=== PATIENT | male | born 1960 | race Caucasian/White ===

== ENCOUNTER 2024-07-01 06:28 | Observation (INO) ==
--- NOTE | 2024-06-02 16:03 | PAT Medication Instructions ---
Medication Instructions Date of Service June 02, 2024 Home Medications albuterol sulfate 90 mcg/actuation breath activated powder inhaler (ProAir RespiClick) 1 inh inhalation QID fluticasone 250 mcg-salmeterol 50 mcg/dose blistr powdr for inhalation (Advair Diskus) 1 inh inhalation BID tamsulosin 0.4 mg capsule 0.4 mg PO QAM cholecalciferol (vitamin D3) 50 mcg (2,000 unit) capsule (Vitamin D3) 50 mcg PO QAM multivitamin 1 cap PO QAM DO NOT take the morning of surgery cholecalciferol (vitamin D3) 50 mcg (2,000 unit) capsule (Vitamin D3) 50 mcg PO QAM multivitamin 1 cap PO QAM Take morning of surgery With a small sip of water, OTHERWISE NOTHING TO EAT OR DRINK AFTER MIDNIGHT: albuterol sulfate 90 mcg/actuation breath activated powder inhaler (ProAir RespiClick) 1 inh inhalation QID fluticasone 250 mcg-salmeterol 50 mcg/dose blistr powdr for inhalation (Advair Diskus) 1 inh inhalation BID tamsulosin 0.4 mg capsule 0.4 mg PO QAM Take evening before surgery albuterol sulfate 90 mcg/actuation breath activated powder inhaler (ProAir RespiClick) 1 inh inhalation QID fluticasone 250 mcg-salmeterol 50 mcg/dose blistr powdr for inhalation (Advair Diskus) 1 inh inhalation BID Other Notes If you have any questions please call us at [phone] or [phone] or [phone] or [phone]
--- NOTE | 2024-06-05 08:09 | Anesthesiology Consultation ---
Date of Service June 05, 2024 Assessment & Plan (1) Encounter for pre-operative examination: Plan Outpatient joint assessment: Patient is currently scheduled for inpatient pathway. If re-evaluated and patient/surgeon requests outpatient pathway, patient is acceptable candidate for outpatient joint program from anesthesia standpoint pending surgeon's office assessment of pt motivation/support/completion of same day joint program preop requirements. Chart Review Chart Review: Acceptable Risk for Surgery and Patient seen in Pre Admission Testing Teaching & Discussion Pre-Anesthesia Teaching/Discussion Notes: Instructed NPO after midnight before surgery, except medications with 15 cc of water. Medication instructions provided according to the PAT guidelines. History Surgery Operation Date: 07/01/24 07:00 Proposed Procedures p Right Total Knee Arthroplasty - Law Christian MD Height/Weight Height: 5 ft 9 in Weight: 101.7 kg Allergies Allergy/AdvReac Type Severity Reaction Status Date / Time No Known Allergies Allergy Verified 06/02/24 13:33 Medications Home Medications Medication Instructions Recorded Confirmed Last Taken albuterol sulfate 90 mcg/actuation 1 inh inhalation QID 11/29/23 06/02/24 Unknown breath activated powder inhaler (ProAir RespiClick) fluticasone 250 mcg-salmeterol 50 1 inh inhalation BID 11/29/23 06/02/24 Unknown mcg/dose blistr powdr for inhalation (Advair Diskus) tamsulosin 0.4 mg capsule 0.4 mg PO QAM 11/29/23 06/02/24 Unknown cholecalciferol (vitamin D3) 50 50 mcg PO QAM 06/02/24 06/02/24 Unknown mcg (2,000 unit) capsule (Vitamin D3) multivitamin 1 cap PO QAM 06/02/24 06/02/24 Unknown Past Medical History Medical History Arthritis Asthma exercise induced; controlled, stable per pt; last albuterol inhaler use estimated as several months ago by patient DJD (degenerative joint disease) GERD (gastroesophageal reflux disease) controlled, stable with diet per pt History of COVID-2020 - resolved Prediabetes Patient denies h/o stroke, seizures, heart attack, heart failure, HTN, blood clots/DVTs or blood transfusions. Exercise / Class Metabolic Activity II 4-5 Yardwork/Stairs/Walk up hill (denies chest discomfort or shortness of breath with one flight of stairs) Past Family History Family History Other Cancer Past Surgical History Surgical History H/O hand surgery right middle finger fused Hx of colonoscopy 2021 Past Anesthesia History No Hx of Anesthesia Complications and No Family Hx of Anesthesia Complications History of PONV No Hx of PONV and No Hx of Motion Sickness Social History Smoking Status: Never smoker Do You Dip or Chew Tobacco: No Hx Alcohol Use: No Hx Substance Use: No substance use type: does not use Review of Systems Snoring, denies witnessed apneas. Patient denies chest pain, shortness of breath, dyspnea on exertion, fever, chills, cough, wheezing, or palpitations. Physical Exam Vital Signs Vitals BP 118/77 P 86 TEMP 98.5 SP02 94% on RA RESP 18 Physical Patient resting comfortably in chair in no acute distress, alert and oriented, responding appropriately throughout visit Full cervical extension range of motion without pain TMD 3.5 finger breadths Mallampati Score 3 Dentition: several crowns; denies chipped or loose teeth, caps, implants or bridges Lungs: normal respiratory effort. Good air movement, clear throughout to auscultation, no adventitious breath sounds Cardiac: regular rate and rhythm, no murmurs noted Carotid arteries: negative bruit bilat Lab Results Anesthesia Preop Results Results Anesthesia Widget: PT 10.8 Seconds (9.0-12.0) 06/05/24 PTT 32 Seconds (21-31) H 06/05/24 INR 1.0 (0.9-1.1) 06/05/24 Blood Type A Negative 06/05/24 Antibody Screen NEGATIVE 06/05/24 Testing Laboratory Results 05/13/24 WBC: 8.9 H/H: PLATELETS: 307,000 SODIUM: 136 POTASSIUM: 4.4 CHLORIDE: 105 CO2: 26 BUN: 16 CREATININE: 1 GLUCOSE: 92 A1c: 5.7% Electrocardiogram Date: 06/05/24 NSR, rate 78 bpm Incomplete RBBB Chest X-Ray Date: 06/05/24 No acute chest disease.
--- NOTE | 2024-06-23 19:30 | History & Physical Report ---
Date of Service June 23, 2024 Assessment & Plan (1) Right knee DJD: 64-year-old male with advanced right knee DJD. He is failed conservative measures. He like to have his knee fixed. Plan: Darby taken to the operating room do a right total knee replacement. There is cements this procedure explained in depth and he understands. Informed consent was obtained. Will plan on DVT prophylaxis including thigh-high teds, SCDs, aspirin twice a day. He is planned to be discharged to home using [facility] health program. Will check his blood glucoses in the hospital and manage with sliding scale coverage as needed. (2) GERD (gastroesophageal reflux disease): (3) Prediabetes: (4) Asthma: History of Present Illness Chief Complaint: . Persistent right knee pain and discomfort. Primary Care Provider: Connie Mariano PA-C . The patient is a 64-year-old gentleman an avid golfer who presents for surgical treatment of right knee. He is got about a 6-year history of increasing right knee pain discomfort describes gotten worse over time. He has been through extensive conservative treatment most specifically injections which become less successful over time. Pain has become more disabling. He has good and bad days but having more bad days. He is right have his knee fixed. Allergies Allergy/AdvReac Type Severity Reaction Status Date / Time No Known Allergies Allergy Verified 06/02/24 13:33 Home Medications Medication Instructions Recorded Confirmed Type albuterol sulfate 90 mcg/actuation 1 inh inhalation QID 11/29/23 06/02/24 History breath activated powder inhaler (ProAir RespiClick) fluticasone 250 mcg-salmeterol 50 1 inh inhalation BID 11/29/23 06/02/24 History mcg/dose blistr powdr for inhalation (Advair Diskus) tamsulosin 0.4 mg capsule 0.4 mg PO QAM 11/29/23 06/02/24 History cholecalciferol (vitamin D3) 50 50 mcg PO QAM 06/02/24 06/02/24 History mcg (2,000 unit) capsule (Vitamin D3) multivitamin 1 cap PO QAM 06/02/24 06/02/24 History Past Med/Surg History Problem List Encounter for pre-operative examination Right knee DJD Medical History GERD (gastroesophageal reflux disease) controlled, stable with diet per pt Prediabetes Asthma exercise induced; controlled, stable per pt; last albuterol inhaler use estimated as several months ago by patient DJD (degenerative joint disease) Arthritis History of COVID-19 2020 - resolved Surgical History Hx of colonoscopy 2021 H/O hand surgery right middle finger fused Family History Other Cancer Social History Smoking Status: Never smoker Second Hand Exposure: No; Do You Dip or Chew Tobacco: No; Hx Alcohol Use: No Hx Substance Use: No Preferred Language: Maltese Communication Ability: Effective General Engineer Required: No Beliefs That Will Affect Care: None marital status: Current Living Situation: Spouse current occupational status: retired Feels Safe at Home: Yes Assistive Devices: None Review of Systems All systems reviewed & are unremarkable except as noted in HPI & below. Physical Exam . Physical examination was a healthy pleasant middle-age male. Looks in good health. Examination of the right knee reveal patient walks with a bit of a limp. He is got varus alignment to his knee. A little bit of varus thrust with weightbearing. Small knee effusion. Range of motion 5-1 25. No instability. No particular pain with hip motion. Constitutional WD/WN, vitals as above Neck trachea midline, no thyromegaly Respiratory normal respiratory effort, lungs clear to auscultation Cardiovascular RRR, no murmur, no edema Gastrointestinal (Abdomen) normal bowel sounds, soft, nontender, no hepatosplenomegaly Results & Data Results & Data Laboratory Results . Diagnostic Findings . X-rays of right knee reviewed. Shows advanced right knee medial compartment DJD. Got complete loss of the medial joint space. He is got tricompartment disease. Is got similar but less severe disease in his left knee. PG Care Time/CCT Total # of Minutes Spent Total Time Spent with Patient: Total time spent is greater than 50% in coordination of care (as documented) at patient's floor/unit and/or counseling patient: Coding Level of Care Code None Diagnoses Right knee DJD M17.11 GERD (gastroesophageal reflux disease) K21.9 Prediabetes R73.03 Asthma J45.909
[2024-07-01] MEDS ORDERED: BUPIVACAINE 0.5 % 5 MG/1 ML PF 10ML VIAL ONE (06:33)
[2024-07-01] MEDS ORDERED: BUPIVACAINE 0.25% PF 30 ML VIAL ONE (06:34)
--- NOTE | 2024-07-01 06:41 | History & Physical Bridge Note ---
Date of Service July 01, 2024 History & Physical Bridge Note I have examined the patient, reviewed the History & Physical and in the interval since the performance of the History & Physical I have noted the following changes of clinical significance: no changes noted
[2024-07-01] MEDS ORDERED: PROPOFOL IV EMULSION 10 MG/ML 20 ML VIAL IV ONE (07:20)
[2024-07-01] MEDS ORDERED: fentaNYL citrate PF 100 MCG/2 ML VIAL ONE (07:20)
[2024-07-01] MEDS ORDERED: MIDAZOLAM HCL 1 MG/ML 2ML VIAL ONE (07:21)
[2024-07-01] MEDS: ACETAMINOPHEN 500 MG TAB PO SCH ×2 (07:36→14:10)
[2024-07-01] MEDS: LR 60ML/HR IV SCH (07:36)
[2024-07-01] MEDS: CeleBREX 200 MG CAP PO SCH (07:37)
[2024-07-01] MEDS: Scopolamine 1 MG TDSY TD SCH (07:37)
[2024-07-01] MEDS: METOCLOPRAMIDE HCL 10 MG TABLET PO SCH (07:37)
[2024-07-01] MEDS: FAMOTIDINE 20 MG TAB PO SCH (07:37)
[2024-07-01] MEDS: dexAMETHasone**PF** 10 MG/ML VIAL IV SCH (07:38)
[2024-07-01] MEDS: LR 500ML BOLUS, THEN 15ML/HR IV SCH (07:42)
[2024-07-01] MEDS: ceFAZolin 2000MG 2,000 MG/15 ML SYR IV SCH ×2 (08:54→15:47)
[2024-07-01] MEDS ORDERED: ATROPINE SULFATE 0.1 MG/ML 10ML SYR IV PRN (09:10)
[2024-07-01] MEDS ORDERED: ONDANSETRON INJ 2 MG/ML 2 ML VIAL IV PRN ×2 (09:10→11:21)
[2024-07-01] MEDS ORDERED: fentaNYL citrate PF 100 MCG/2 ML VIAL IV PRN (09:10)
[2024-07-01] MEDS ORDERED: ePHEDrine sulfate 50 MG/ML AMP IV PRN (09:10)
[2024-07-01] MEDS: ROPIV 0.5% 246mg, Ketorolac 30mg, EPINEPHrine 0.5mg in NSS INFIL SCH (09:35)
[2024-07-01] MEDS: ORTHO JOINT ANESTHETIC ONE (09:36)
[2024-07-01] MEDS: TRANEXAMIC ACID 1,000 MG **IV Intra-op IV SCH (09:42)
--- NOTE | 2024-07-01 10:47 | Operative Report ---
PG Post Operative Report Pre & Post Diagnosis Operation Date: 07/01/24 08:50 Pre-Op Diagnosis: Right Knee Degenerative Joint Disease Post-Op Diagnosis: Right Knee Degenerative Joint Disease I identified the patient and participated in the time-out.: Yes Procedure Operation Date: 07/01/24 08:50 Actual Procedures p Right Total Knee Arthroplasty(Right) - Law Christian MD Surgeon Law Christian MD Director Of Labor And Delivery Chao Charlton PA-C Estimated Blood Loss 50 Findings Consistent with Post-Op Diagnosis Operative findings revealed advanced right knee tricompartment DJD. He had extensive grade 4 [id number] disease of the medial and patellofemoral compartments. He had less severe grade 4 changes laterally. Varus deformity to his knee. Moderate-sized joint effusion. Specimens Right knee sent for pathology. Anesthesia Type Spinal MAC Complications none Disposition Accompanied Patient To Recovery: No Indications Patient is a 64-year-old very active gentleman whose had a several year history of increasing right knee pain discomfort described to gotten worse over time. He failed conservative measures. X-rays show advanced right knee DJD. He elected proceed with surgical treatment. Description of Procedure Operative implants consist of: 1 Biomet Vanguard size 67.5 right posterior stabilized femoral component. 2. Biomet size 79 tibial tray. 3. 10 mm posterior Byce polyethylene insert. 4. 34 x 8-1/2 all poly patella. The patient was taken to the op room, identified, placed on the operating table in the supine position. All contact areas were appropriately padded. IV antibiotics fibra anesthesia team. Spinal anesthetic and adductor canal block had been provided in the holding area. Right thigh tent was then placed. The right lower extremity was then prepped and draped in usual sterile fashion. The right leg was elevated and exsanguinated with use of an Esmarch and the turn was placed at 300 mmHg. An anterior approach to the right knee was then performed through a large atrial incision centered over the patella. Sharp dissection was Through the subcutaneous tissues down the extensor mechanism. A medial parapatellar arthrotomy incision was made. Some subperiosteal dissection was carried out medially. The fat pad was resected munis patella tendon. The lateral patellofemoral ligament was released. Patella subluxate laterally and the knee was flexed. The osteophytes were taken off distal femur. The ACL and PCL were then released from the distal femur the tibia subluxated anteriorly. The external tibial alignment jig was then placed on the anterior face the tibia and adjusted 14 mm medially. Proximal tibial cut was made essentially flush with the most efficient aspect of the medial tibial plateau. Some osteophytes taken off medial posterior medially. The tibia sized to a size 79. Attention drawn the femur. The distal femur examined the sharp drop with intramedullary canal was suction. Right 6 degree valgus cutting guide was placed. Distal femoral cutting block was pinned in place. Distal femoral cut was made to take an additional 3 mm of bone off distal femur. The femur was then sized to a size 67.5. The AP cutting block was pinned parallel to the epicondylar axis which was 4 degrees of external rotation. The anterior cut, anterior chamfer, posterior cut, posterior chamfer cuts were made. The box cutting guide was placed. The box cut was made. The knee was flexed. The remnants of the medial and lateral menisci were excised. The osteophytes taken off the posterior aspect the femur. A trial femoral component was placed. The tibial tray was pinned in Cherri external rotation and the drill and stem punch used to create defect in proximal tibia for the tibial tray. The knee was then trialed and the 10 mm insert fit most appropriately. Attention drawn the patella. The patella was cleaned of all soft tissue. Patella thickness measured 24 mm in thickness was cut down to 14. Was sized to a size 34 patella. The lug holes were drilled for 34 patella. The lateral osteophytes removed. Patella button was placed. Knee was taken through range of motion and the patella tracked nicely with no thumbs test. Attention drawn to place the permanent components. Nupathe all trial components were removed. Bone plug was placed into this femur limit blood loss. A double batch Palacos G cement was mixed. Biomet Vanguard size 67.5 right posterior stabilized femoral component, a size 79 tibial tray, a 10 mm posterior Byce polyethylene insert, and a 34 x 8 and half all poly patella then cemented in place. The knee was brought out into full extension till cement hardened. Final cement check was then performed. The pericapsular tissues were injected with total of 100 cc of Ortho mix. Patient did receive 1 g tranexamic acid. The tourniquet was let down for final tourniquet time of 53 minutes. Hemostasis assured use electrocautery. Extensor Meclomen closed with combination 1 PDS suture and 1 Vicryl suture in a [id number] fashion. Extensor Meclomen checked found to be intact with subcutaneous tissues then closed with 2 Dexon suture in a buried interrupted fashion skin was closed skin dahlia. Leg was then cleaned and dried and sterile dressing with Xeroform, 4 fours, sterile ABD pad, sterile cast padding, [place] bandage were applied. Patient then transferred to the recovery room in stable condition. Patient tolerated the procedure well and there were no complications. Chao Charlton, my physician geriatric assistant, was present for the entire procedure. His assistance was essential and required for appropriate patient positioning, prepping and draping, surgical exposure, performing the technical details of the operation, placement the implants, closure of the wound, and placement of the sterile bandage. I attest to the content of the Intraoperative Record and any orders documented therein. Any exceptions are noted below.
--- NOTE | 2024-07-01 11:02 | XRay Report ---
XR knee RT 1 or 2V routine CLINICAL HISTORY: Postoperative evaluation. COMPARISON: Right knee radiographs November 29, 2023. FINDINGS: Alignment of the total right knee arthroplasty is anatomic. There is no periprosthetic fra cture or unexpected radiopaque foreign body. There are skin dahlia. A bony excrescence arising from the medial metadiaphysis of the right femur is suggestive of a small osteochondroma. IMPRESSION: Expected findings following total right knee arthroplasty. ACT 112: Negative or not required by law. Electronically signed by: Kendall Og M.D. 07/01/2024 11:01 AM
--- NOTE | 2024-07-01 11:03 | Anesthesiology Progress Note ---
Date of Service July 01, 2024 Anesthesia Post Procedure Vital Signs Vital Signs: Temp Pulse Pulse Resp BP Pulse Ox O2 Del Method 07/01/24 10:55 36.4 C L 82 18 108/56 L 94 Room Air 07/01/24 10:45 87 19 110/61 95 Oxymask 07/01/24 10:36 36.1 C L 67 17 108/67 93 Oxymask 07/01/24 07:11 36.7 C 82 18 115/78 93 Room Air O2 Flow Rate 07/01/24 10:55 07/01/24 10:45 5 07/01/24 10:36 5 07/01/24 07:11 Pain Intensity Right Knee: Pain Intensity: 0 Transfer of Care Handoff Completed per policy Notes Mental Status: alert / awake / arousable Patient Amnestic to Procedure: Yes Nausea / Vomiting: adequately controlled Pain: adequately controlled Airway Patency, RR, SpO2: stable & adequate BP & HR: stable & adequate Hydration State: stable & adequate Neuraxial Anesthesia: was administered and sensory block is resolving Anesthetic Complications: no major complications apparent and Pt Satisfied with anesthetic care
[2024-07-01] MEDS ORDERED: bisacodyL 10 MG SUPP PR PRN (11:21)
[2024-07-01] MEDS ORDERED: PHARMACY GLYCEMIC MGMT CONSULT PRN (11:21)
[2024-07-01] MEDS ORDERED: MAGNESIUM HYDROXIDE SUSP 30 ML UDC PO PRN (11:21)
[2024-07-01] MEDS ORDERED: METOCLOPRAMIDE HCL INJ 5 MG/ML 2 ML VIAL IV PRN (11:21)
[2024-07-01] MEDS ORDERED: NALOXONE HCL 0.4 MG/1 ML VIAL/CARP IV PRN (11:21)
[2024-07-01] MEDS ORDERED: ALUMINUM/MAGNESIUM SUSP 30 ML UDC PO PRN (11:21)
[2024-07-01] MEDS: SODIUM CHLORIDE 0.9% 1,000 ML IV SCH (11:35)
[2024-07-01] MEDS: KETOROLAC TROMETHAMINE 15 MG/ML VIAL IV SCH (11:45)
[2024-07-01] MEDS ORDERED: CARBOHYDRATES FOR HYPOGLYCEMIA PO PRN (12:15)
[2024-07-01] MEDS ORDERED: GLUCOSE 10 TAB/TUBE PO PRN (12:15)
[2024-07-01] MEDS ORDERED: GLUCAGON FOR INJ 1 MG VIAL SQ PRN (12:15)
[2024-07-01] MEDS ORDERED: DEXTROSE 50% 50 ML SYRINGE IV PRN (12:15)
[2024-07-01] MEDS ORDERED: GLUCOSE 40% GEL 15 GM TUBE PO PRN (12:15)
[2024-07-01] MEDS: INSULIN ASPART PER UNIT CHARGE SC SCH (14:08)
[2024-07-01] MEDS: ALBUTEROL HFA 8 GM INHALER INH SCH (14:10)
[2024-07-01] MEDS: Scopolamine CHECK PATCH PLACEMENT SCH (15:06)
[2024-07-01] MEDS: HYDROmorphone INJ 0.5 MG/0.5 ML SYR IV PRN (15:35)
[2024-07-01] MEDS: oxyCODONE HCL IR 5 MG TAB (IMMEDIATE RELEASE) PO PRN (15:35)
[2024-07-01] MEDS: TRANEXAMIC ACID / 0.7% NACL 1,000 MG/100 ML BAG IV SCH (15:55)
[2024-07-01] MEDS: ASCORBIC ACID 500 MG TAB PO SCH (16:18)
[2024-07-01] MEDS: ASPIRIN 81 MG ECTAB PO SCH (20:03)
[2024-07-01] MEDS: SENNA 8.6 MG TAB PO SCH (20:07)
[2024-07-01] MEDS: DOCUSATE SODIUM 100 MG CAP PO SCH (20:07)
[2024-07-01] MEDS ORDERED: SENNA 8.6 MG TAB PO SCH (21:00)
[2024-07-02 06:45] LABS: Hematocrit (blood only) 40.5 % (42.0-52.0); Mean Corpuscular Hemoglobin 29.2 pg (25.0-34.0); Mean Corpuscular Hgb Conc 34.6 g/dL (32.0-36.0); Mean Corpuscular Volume 84.4 fL (80.0-100.0); Mean Platelet Volume 9.5 fL (9.4-12.4); Platelet Count 300 K/uL (130-400); RDW Coefficient of Variation 15.8 % (11.5-14.5); RDW Standard Deviation 49.1 fL (36.4-46.3); White Blood Count 17.05 K/ul (4.8-10.8)
[2024-07-02 07:11] LABS: Estimated Average Glucose 123 mg/dl; Hemoglobin A1C 5.9 % (4.5-5.6)
[2024-07-02 07:32] LABS: BUN Creatinine Ratio 17.4 (10-20); Creatinine Clr Calc Pharmacy 74.5 ml/min; Potassium 4.2 mmol/L (3.5-5.1)
--- NOTE | 2024-07-02 07:38 | Orthopedic Progress Note ---
Date of Service July 02, 2024 Assessment & Plan (1) Status post right knee replacement: Plan: 64-year-old gentleman postop day 1 from right knee replacement doing pretty well. Pain seems to be controlled. He is neurologically intact. Plan: 1. DVT prophylaxis including thigh-high teds, SCDs, aspirin twice a day. 2. PT/OT. Weight-bear as tolerated. Right total knee protocol. 3. Pain control doing okay with current pain regimen. 4. Disposition. Plan is to discharge to home with some home health later today if he does okay in therapy. Admission and Anticipated Discharge Date Admission Date: July 01, 2024 Subjective 64-year-old gentleman postop day 1 from right knee replacement. He is doing pretty well this morning. Had quite a bit of pain last night but responded pretty well to pain medicine. No chest pain or shortness of breath. Not feeling dizzy or lightheaded. Physical Exam Physical Exam: Physical examination was a pleasant middle-age male. He says sitting up in bed looks pretty comfortable. Examination of the right leg reveals leg to be well aligned. Dressings clean dry and intact. No drainage. He can dorsiflex and plantarflex his foot appropriately. He is neurologically intact. Respiratory: normal respiratory effort, lungs clear to auscultation Cardiovascular: RRR, no murmur, no edema Gastrointestinal (Abdomen): normal bowel sounds, soft, nontender, no hepatosplenomegaly Results & Data Vital Signs (Past 12 Hours) Vital Signs Temp Pulse Resp BP Pulse Ox O2 Del Method 07/02/24 06:37 36.7 C 89 16 131/75 94 Room Air 07/02/24 03:10 36.8 C 86 16 119/71 93 Room Air 07/01/24 22:54 36.6 C 93 H 18 136/72 93 Room Air Laboratory Results Hemoglobin is 14.0. Hematocrit is 40.5. Electrolytes are stable.
[2024-07-02] MEDS: dexAMETHasone 10 MG in SYRINGE 0 ML IV SCH (08:04)
[2024-07-02] MEDS: MULTIVITAMIN TAB PO SCH (08:05)
[2024-07-02] MEDS: FLUTICASONE/VILANTEROL 200/25MCG 14 PUFFS/INHALER INH SCH (08:06)
[2024-07-02] MEDS: TAMSULOSIN HCL 0.4 MG CAP PO SCH (08:07)
[2024-07-02] MEDS: CHOLECALCIFEROL 25 MCG (1000 UNITS) TAB PO SCH (08:07)
[2024-07-02] MEDS ORDERED: NON-FORMULARY MEDICATION (Multivitamin Capsule) PO SCH (09:00)
[2024-07-02] MEDS: INFLUENZA VACC TS2024-25(65y+)/PF (IIV3) 0.5mL Syr IM ONE (09:35)
--- NOTE | 2024-07-03 06:35 | Discharge Summary ---
Date of Service July 03, 2024 Admission HPI (Per Admitting) . The patient is a 64-year-old gentleman an avid golfer who presents for surgical treatment of right knee. He is got about a 6-year history of increasing right knee pain discomfort describes gotten worse over time. He has been through extensive conservative treatment most specifically injections which become less successful over time. Pain has become more disabling. He has good and bad days but having more bad days. He is right have his knee fixed. Admission Exam (Per Admitting) . Physical examination was a healthy pleasant middle-age male. Looks in good health. Examination of the right knee reveal patient walks with a bit of a limp. He is got varus alignment to his knee. A little bit of varus thrust with weightbearing. Small knee effusion. Range of motion 5-1 25. No instability. No particular pain with hip motion. Principal Diagnosis Same as "Discharge Diagnosis" noted below under Discharge Instructions. Discharge Data Procedures Performed Operation Date: 07/01/24 08:50 Actual Procedures p Right Total Knee Arthroplasty(Right) - Law Christian MD Ordered Studies 07/01/24 05:00 US - OR guided needle placemen Routine Hospital Course (1) Status post right knee replacement: This is a 64 year old patient admitted on 07/01/24 and underwent total knee arthroplasty. He tolerated the procedure well and there were no complications. Transferred to the PACU post op and later to the orthopedic floor for further care. He was given ancef for antibiotic prophylaxis. He was also given GINO stockings, SCDs, and aspirin for DVT prophylaxis. Hemoglobin, hematocrit, and vital signs were monitored during his hospital stay and remained stable. Did not require any blood transfusions. There were no complications during his hospital stay. By post op day #1 the patient was tolerating a diabetic diet, pain was reasonably controlled with oral pain medicine, and he was participating in phy sical therapy. On post op day #1 the patient was discharged home and set up with home health care. He was given printed discharge instructions including prescriptions for extra strength tylenol, aspirin, cefadroxil, ketorolac, zofran, oxycodone, senokot, and flomax. Continue physical therapy, weight bearing as tolerated. Continue GINO stockings. Follow up approximately 2 weeks post op or sooner if there are problems or concerns. Discharge Plan Discharge Items Patient Disposition: Home - Home Health Services Reason For Visit: Right Knee Degenerative Joint Disease Discharge Diagnosis: Right Knee Replacement Activity: Per Instructions section Weightbearing: Full weightbearing Non-emergency contact: Surgeon Call non-emergency contact if: you have any medication questions Follow-up/Referrals: Connie Mariano PA-C [Primary Care Provider] - Diet: Carb Consistent or DM2 Addtl Attending Provider Instructions: ACTIVITY RECOMMENDATIONS: Diet: * You may resume previous diet. Physical Therapy: * You will go to physical therapy three times each week for four to six weeks after your surgery in order to regain your knee range of motion and to retrain your knee to work properly. * It is just as important to make sure you are getting your knee perfectly straight as it is to regain your knee bend. * Taking a pain pill an hour before therapy can help you have a more productive and comfortable therapy session. Home Exercise: * You were shown a series of exercises (heel props, heel slides, etc.) in the hospital. Do these exercises three to four times each day including the exercises you were shown in physical therapy. Walking: * Get up and walk several times each day. For the first four weeks, try not to stand or walk for more than one hour at a time. If you do stand or walk for more than one hour, you will not hurt anything, but your knee and leg will likely swell. * As you feel comfortable, you may change from the walker or crutches to a cane and then to independent walking. MEDICATIONS: New Medicine: * You will likely be taking one or more of these medications: 1. Oxycodone - A quick and shorter-acting pain medication. Take one to two tablets every six hours to lessen your pain. 2. Aspirin - Thins your blood to lessen the chance of forming a blood clot. * The most common side effects of pain medicine and iron are nausea and constipation. If nausea or constipation is too much of a problem or if you have any questions about your new medicines or doses, call [facility] at . We will try to help you manage these issues. "VERY IMPORTANT TO READ AND REVIEW" Pain: * The immediate post-operative period after knee replacement surgery is often quite painful. * You are given a prescription for pain medicine. You should take it, as directed, when you need it, especially before physical therapy and before going to bed. Pain that interferes with sleep is very common and can last several months. * You will likely need pain medicine for the first four to six weeks. It will not stop all of the pain. The pain will lessen and as you feel better, you may change to milder pain medicine such as Tylenol. * The most common side effects of pain medicine are nausea and constipation, so don't take more than you need. SPECIAL CARE INSTRUCTIONS: TEDs/Elastic Stockings: * The white elastic stockings help limit swelling and prevent blood clots from forming in your legs. The more you wear them, the more they work. * Wear them for six weeks after knee replacement surgery and four weeks after partial knee replacement. Incision Site Care: * Remove dressing postoperative day 2 and then shower. Keep direct shower pressure off the incision site. * After showering, cover dahlia with dry gauze and change daily or more frequently if the dressing is getting saturated with drainage. * Use the GINO stockings to hold dressing in place. DO NOT apply tape on the skin. * May completely stop using bandage if wound is dry and no drainage * [place] are removed between 2 and 3 weeks post-op. If your follow-up appointment is made before 2 weeks, please have your appointment re- scheduled. It is too early to remove the dahlia. Prevention of Infection: * Take antibiotics one hour before any dental cleaning, dental work, urological procedure, gastrointestinal procedure or any invasive surgery in order to prevent your new joint from getting infected. * You may get the antibiotics from the doctor performing the procedure or you may call our office at [phone] before and we will call in a prescription to the pharmacy of your choice. Things to Watch For: * Drainage from the incision site that occurs more than one week after your surgery. * Severely increased knee/leg pain or swelling. * Increased redness at the incision site. * Fever above 102 degrees Fahrenheit. * Unusual chest pain or shortness of breath. * Unusual pain or burning with urination. Call [facility] at [phone] with any of the above problems or if you have any questions about your medicines or recovery. FOLLOW UP VISIT: Make an appointment to see your doctor for approximately two weeks after surgery for a progress check and staple removal by calling the office at [phone]. Pending Studies at Discharge: No Stand-Alone Forms: My [facility], Smoking Cessation Medications and DC Order Prescriptions: Continued oxycodone 5 mg tablet 5 - 10 mg PO Q6 PRN (Reason: pain) Qty: 40 0RF Rx Instructions: Take as needed for pain ondansetron 4 mg tablet,disintegrating 4 mg PO Q8 PRN (Reason: nausea) Qty: 20 1RF Rx Instructions: Take as needed for nausea ketorolac 10 mg tablet 10 mg PO Q6 5 Days Qty: 20 0RF Rx Instructions: Take 4 times per day with food for 5 days to lessen pain and swelling. sennosides [Senokot] 8.6 mg tablet 8.6 mg PO BID 14 Days Qty: 28 0RF Rx Instructions: Take two times a day to prevent/treat constipation acetaminophen [Tylenol Extra Strength] 500 mg tablet 1,000 mg PO TID 30 Days Qty: 180 0RF Rx Instructions: Take 3 times per day to lessen pain. cefadroxil 500 mg capsule 500 mg PO BID 7 Days Qty: 14 0RF Rx Instructions: Take 1 cap twice a day to prevent infection aspirin [Ayla Low Dose Aspirin] 81 mg tablet,delayed release (DR/EC) 81 mg PO BID 45 Days Qty: 90 0RF Rx Instructions: Take to prevent blood clots. tamsulosin 0.4 mg capsule 0.4 mg PO QAM ProAir RespiClick 90 mcg/actuation aerosol powdr breath activated 1 inh inhalation QID multivitamin Capsule 1 cap PO QAM cholecalciferol (vitamin D3) [Vitamin D3] 50 mcg (2,000 unit) Capsule 50 mcg PO QAM budesonide-formoterol [Symbicort] 160-4.5 mcg/actuation Hfa Aerosol Inhaler 2 puff INHALATION BID Krames/Other Patient Handouts: Knee Replace Home Recovery Admission Data Admit Date/Time: 07/01/24 10:40 Attending Provider: Law Christian Admit Provider: Law Christian Primary Care Provider: Connie Mariano Other Interventions: Discharge Summary Assessment (RN) Last Done: 07/02/24 10:09
== END 2024-07-02 10:36 | disposition home health service (06) ==
LOC: ASU 06:28 → 3E 06:28

== ENCOUNTER 2024-09-25 09:00 | Observation (INO) ==
--- NOTE | 2024-09-15 09:49 | Anesthesiology Consultation ---
Date of Service September 15, 2024 Assessment & Plan (1) Encounter for pre-operative examination: Infectious disease screening: Per assessment on 09/15/24- No known recent infectious disease contacts. Patient notes that he was made aware of 09/15/24 preop CXR findings and told "early stage of walking pneumonia found.." He was started on doxycycline which will be completed ~09/18/24. Patient asymptomatic. Advised to contact surgeon/PAT if symptom development prior to surgery. At anesthesiologist discretion DOS if Covid testing and/or anything further needed preop from their perspective. Chart Review Chart Review: Acceptable Risk for Surgery (pending evaluation DOS) and Patient NOT seen in Pre Admission Testing History Surgery Operation Date: 09/25/24 14:30 Proposed Procedures p TURP (Transurethral Resection of the Prostate) - Bentley Farley, Height/Weight Height: 5 ft 9 in Weight: 99.79 kg Allergies Allergy/AdvReac Type Severity Reaction Status Date / Time No Known Allergies Allergy Verified 09/04/24 12:46 Medications Home Medications Medication Instructions Recorded Confirmed Last Taken albuterol sulfate 90 mcg/actuation 1 inh inhalation QID PRN sob 11/29/23 09/15/24 06/26/24 breath activated powder inhaler (ProAir RespiClick) tamsulosin 0.4 mg capsule 0.4 mg PO QAM 11/29/23 09/15/24 07/01/24 04:30 cholecalciferol (vitamin D3) 50 50 mcg PO QAM 06/02/24 09/15/24 06/30/24 08:00 mcg (2,000 unit) capsule (Vitamin D3) multivitamin 1 cap PO QAM 06/02/24 09/15/24 06/30/24 08:00 acetaminophen 500 mg tablet 1,000 mg PO TID PRN pain 09/15/24 09/15/24 Unknown (Tylenol Extra Strength) doxycycline hyclate 100 mg tablet 100 mg PO BID 09/15/24 09/15/24 Unknown Past Medical History Medical History Acute urinary retention Arthritis Asthma exercise induced; controlled, stable per pt; last albuterol inhaler use estimated as several months ago by patient BPH (benign prostatic hyperplasia) DJD (degenerative joint disease) Elevated PSA GERD (gastroesophageal reflux disease) controlled, stable with diet per pt History of COVID-19 2020 - resolved History of pneumonia had a preop chest xray for upcoming surgery, found "early start of walking pneumonia" started on doxycycline and to finish on 09/18/24. Indwelling Hsu catheter present since Right TKA (Fall 2023) Prediabetes resolved with weight loss - still monitoring Urinary retention Past Family History Family History Other Cancer No family history of adverse response to anesthesia Past Surgical History Surgical History H/O hand surgery right middle finger fused Hx of colonoscopy 2021 Status post knee replacement right TKA Social History Smoking Status: Never smoker Do You Dip or Chew Tobacco: No Hx Alcohol Use: No Hx Substance Use: No substance use type: does not use Lab Results Anesthesia Preop Results Results Anesthesia Widget: WBC 9.00 K/ul (4.8-10.8) 09/04/24 Hgb 16.3 g/dl (14.0-18.0) 09/04/24 Hct 48.7 % (42.0-52.0) 09/04/24 Plt 325 K/uL (130-400) 09/04/24 Na 136 mmol/L (136-145) 09/04/24 K 4.3 mmol/L (3.5-5.1) 09/04/24 Cl 105 mmol/L (98-107) 09/04/24 CO2 22 mmol/L (21-32) 09/04/24 BUN 14 mg/dl (6-23) 09/04/24 Creat 1.18 mg/dl (0.6-1.4) 09/04/24 Glucose Level 96 mg/dl (70-99(Fasting)) 09/04/24 Testing Chest X-Ray Date: 09/04/24 IMPRESSION: Faint right mid lung airspace opacity is seen. This may represent atelectasis, pneumonia, and/or aspiration.
--- NOTE | 2024-09-25 09:33 | History & Physical Bridge Note ---
Date of Service September 25, 2024 History & Physical Bridge Note I have examined the patient, reviewed the History & Physical and in the interval since the performance of the History & Physical I have noted the following changes of clinical significance: no changes noted
[2024-09-25] MEDS: LR 15ML/HR IV SCH (09:50)
[2024-09-25] MEDS ORDERED: ONDANSETRON INJ 2 MG/ML 2 ML VIAL ONE (10:16)
[2024-09-25] MEDS ORDERED: fentaNYL citrate PF 100 MCG/2 ML VIAL ONE ×2 (10:16→11:46)
[2024-09-25] MEDS ORDERED: MIDAZOLAM HCL 1 MG/ML 2ML VIAL ONE (10:16)
[2024-09-25] MEDS ORDERED: PROPOFOL IV EMULSION 10 MG/ML 20 ML VIAL IV ONE (10:16)
[2024-09-25] MEDS ORDERED: LIDOCAINE 2% 2 ML VIAL/AMP(20MG/ML) INFIL ONE (10:16)
[2024-09-25] MEDS ORDERED: DEXAMETHASONE SOD INJ 4 MG/ML VIAL ONE (10:16)
[2024-09-25] MEDS ORDERED: ROCURONIUM BROMIDE 10 MG/ML 5 ML VIAL IV ONE (10:19)
[2024-09-25] MEDS ORDERED: ePHEDrine sulfate 50 MG/ML AMP IV PRN (10:40)
[2024-09-25] MEDS ORDERED: ONDANSETRON INJ 2 MG/ML 2 ML VIAL IV PRN (10:40)
[2024-09-25] MEDS ORDERED: ATROPINE SULFATE 0.1 MG/ML 10ML SYR IV PRN (10:40)
[2024-09-25] MEDS: CIPROFLOXACIN / D5W 400 MG/200 ML BAG IV SCH ×2 (11:26→22:47)
[2024-09-25] MEDS ORDERED: KETOROLAC 30 MG/ML VIAL ONE (12:36)
[2024-09-25] MEDS ORDERED: diphenhydrAMINE 50 MG/ML VIAL ONE (12:36)
--- NOTE | 2024-09-25 12:57 | Operative Report ---
PG Post Operative Report Pre & Post Diagnosis Operation Date: 09/25/24 10:50 Pre-Op Diagnosis: Elevated PSA, Acute Urinary Retention Post-Op Diagnosis: Elevated PSA, Acute Urinary Retention I identified the patient and participated in the time-out.: Yes Procedure Operation Date: 09/25/24 10:50 Actual Procedures p Transurethral Resection of the Prostate(Not Applicable) - Bentley Farley DO Surgeon Bentley Farley, II, DO Knife Sharpener None Estimated Blood Loss 10 Findings Consistent with Post-Op Diagnosis Large Prostate with obstruction. Specimens Prostate adenoma. Drains 22Fr [address] Catheter Anesthesia Type General Complications none Disposition Disposition: Recovery Room Indications Patient with obstruction due to prostate enlargement. Risks and benefits discussed at length. Description of Procedure Patient was consented and brought back to the operating room. Patient was placed under anesthesia in the supine position and moved to the dorsal lithotomy position. Patient was prepped and draped in the regular sterile fashion. A time out was completed. A 30degree Cystoscope was placed into the bladder and the entire bladder was examined. The UO's were identified as well as the bladder neck, trigone, dome, and the other important landmarks. The prostatic urethra and large lobes/adenoma was assessed and the veru and bladder neck identified and area/size was assessed. The resection scope was placed and the fine bipolar loop was selected. Starting at the 5 and 7 o'clock positions, a channel was created from bladder neck to the veru.The lateral lobes were then resected starting at the 1 and 11 o'clock position. The tissue was resected down to the capsule fibers. The Specimen was removed and sent for analysis. The resection bed and any bleeding areas were fulgurated/cauterized and the entire area inspected. All bleeding was controlled. The bladder was inspected a final time. The bladder was emptied and irrigated. All specimen and debris was removed. The scope was removed with the bladder partially full. A catheter was placed and balloon elevated. This was easily irrigated. The patient was cleaned, aroused from anesthesia, and transferred to the pacu in stable condition having tolerated the procedure well with no complications. I was present and participated in all aspects of the procedure. The patient will be monitored in the PACU until transferred. Followup for 7-10 days for catheter removal and pathology review. I attest to the content of the Intraoperative Record and any orders documented therein. Any exceptions are noted below.
[2024-09-25] MEDS: fentaNYL citrate PF 100 MCG/2 ML VIAL IV PRN (13:25)
[2024-09-25] MEDS: HYDROmorphone INJ 2 MG/ML SYR/VIAL IV PRN (13:55)
[2024-09-25] MEDS: HYDROmorphone INJ 2 MG/ML SYR/VIAL ONE (13:59)
--- NOTE | 2024-09-25 14:32 | Anesthesiology Progress Note ---
Date of Service September 25, 2024 Anesthesia Post Procedure Vital Signs Vital Signs: Temp Pulse Pulse Resp BP Pulse Ox O2 Del Method 09/25/24 14:25 87 11 L 112/70 94 Nasal Cannula 09/25/24 14:15 85 9 L 108/69 94 Nasal Cannula 09/25/24 14:05 93 H 18 130/92 93 Nasal Cannula 09/25/24 13:55 91 H 13 110/74 94 Nasal Cannula 09/25/24 13:45 36.5 C 90 8 L 120/68 93 Nasal Cannula 09/25/24 13:35 93 H 8 L 123/67 95 Nasal Cannula 09/25/24 13:25 96 H 16 119/73 96 Oxymask 09/25/24 13:15 102 H 15 116/68 96 Oxymask 09/25/24 13:06 36.6 C 106 H 15 128/83 92 Oxymask 09/25/24 09:28 36.5 C 96 H 20 117/74 94 Room Air O2 Flow Rate 09/25/24 14:25 2 09/25/24 14:15 2 09/25/24 14:05 2 09/25/24 13:55 2 09/25/24 13:45 2 09/25/24 13:35 2 09/25/24 13:25 8 09/25/24 13:15 8 09/25/24 13:06 8 09/25/24 09:28 Pain Intensity Pelvic: Pain Intensity: 2 Transfer of Care Handoff Completed per policy Notes Mental Status: alert / awake / arousable and participated in evaluation Patient Amnestic to Procedure: Yes Nausea / Vomiting: adequately controlled Pain: adequately controlled Airway Patency, RR, SpO2: stable & adequate BP & HR: stable & adequate Hydration State: stable & adequate Anesthetic Complications: no major complications apparent and Pt Satisfied with anesthetic care
[2024-09-25] MEDS ORDERED: oxyBUTYnin chloride 5 MG TAB PO PRN (14:58)
[2024-09-25] MEDS ORDERED: ACETAMINOPHEN 500 MG TAB PO PRN (14:58)
[2024-09-25] MEDS ORDERED: MoRPHine SULFATE 2 MG/ML CARP IV PRN (14:58)
[2024-09-25] MEDS ORDERED: ALBUTEROL HFA 8 GM INHALER INH PRN (15:00)
[2024-09-25 15:48] LABS: Basophils # (auto) 0.07 K/uL (0.00-0.20); Basophils % (auto) 0.7 %; Eosinophils # (auto) 0.02 K/uL (0.00-0.50); Eosinophils % (auto) 0.2 %; Hematocrit (blood only) 42.2 % (42.0-52.0); Immature Granulocytes # (auto) 0.04 K/uL (0.01-0.20); Immature Granulocytes % (auto) 0.4 %; Lymphocytes # (auto) 0.77 K/uL (1.20-3.40); Lymphocytes % (auto) 8.2 %; Mean Corpuscular Hemoglobin 29.2 pg (25.0-34.0); Mean Corpuscular Hgb Conc 33.2 g/dL (32.0-36.0); Mean Corpuscular Volume 88.1 fL (80.0-100.0); Mean Platelet Volume 9.4 fL (9.4-12.4); Monocytes % (auto) 1.1 %; Neutrophils # (auto) 8.44 K/uL (1.40-6.50); Neutrophils % (auto) 89.4 %; Platelet Count 279 K/uL (130-400); RDW Coefficient of Variation 15.7 % (11.5-14.5); RDW Standard Deviation 50.9 fL (36.4-46.3); Red Blood Count 4.79 M/uL (4.70-6.10); White Blood Count 9.44 K/ul (4.8-10.8)
[2024-09-25 16:02] LABS: Albumin Globulin Ratio 1.3 (0.9-2); Albumin Level 3.7 gm/dl (3.4-5.0); Bilirubin,Total 0.7 mg/dl (0.2-1.0); Calcium 8.6 mg/dl (8.6-10.3); Creatinine Clr Calc Pharmacy 86.6 ml/min; Globulin 2.9 gm/dl (2.5-4.0); Potassium 4.3 mmol/L (3.5-5.1); Total Protein 6.6 gm/dl (6.0-8.3)
[2024-09-25] MEDS: PHENAZOPYRIDINE HCL 200 MG TAB PO PRN (16:22)
[2024-09-25] MEDS: oxyCODONE/ACETAMINOPHEN 5mg/325mg TAB PO PRN (20:05)
[2024-09-25] MEDS: DOCUSATE SODIUM 100 MG CAP PO SCH (20:05)
[2024-09-26 07:11] VITALS: BP 121/66; PULSE 82; RESP 16; TEMP 98.1; O2SAT 92
[2024-09-26] MEDS: TAMSULOSIN HCL 0.4 MG CAP PO SCH (08:56)
[2024-09-26 09:16] LABS: Hemoglobin 12.8 g/dl (14.0-18.0); Mean Corpuscular Hemoglobin 28.5 pg (25.0-34.0); Mean Corpuscular Hgb Conc 32.8 g/dL (32.0-36.0); Mean Corpuscular Volume 86.9 fL (80.0-100.0); Mean Platelet Volume 9.6 fL (9.4-12.4); Platelet Count 306 K/uL (130-400); RDW Coefficient of Variation 15.6 % (11.5-14.5); RDW Standard Deviation 49.4 fL (36.4-46.3); Red Blood Count 4.49 M/uL (4.70-6.10); White Blood Count 14.83 K/ul (4.8-10.8)
[2024-09-26 09:28] LABS: BUN Creatinine Ratio 20.4 (10-20); Calcium 8.8 mg/dl (8.6-10.3); Creatinine Clr Calc Pharmacy 84.1 ml/min; Potassium 3.9 mmol/L (3.5-5.1)
--- NOTE | 2024-09-26 10:20 | Urology Progress Note ---
Date of Service September 26, 2024 Assessment & Plan (1) BPH (benign prostatic hyperplasia): (2) Elevated PSA: (3) Urinary retention: Plan POD #1 s/p transurethral resection of prostate with Dr. Farley. - Doing well, progressing as expected. - Afebrile with stable vitals - Labs today reviewed - WBC 14.83, Hemoglobin 12.8, Creatinine 1.03. - Tolerating PO diet - Reports minimal pain - 3 way Hsu catheter intact, patent and draining clear urine with CBI on slow rate. - CBI clamped this morning - will reassess later this AM - Maintain Hsu catheter - Anticipate home with Hsu catheter later today presuming urine appropriate and he continues to progress as expected - Expected clinical course reviewed, all questions answered - Will arrange outpatient follow-up with our service for voiding trial and path review Admission and Anticipated Discharge Date Admission Date: September 25, 2024 Subjective Pt seen at bedside today Awake and resting in bed on arrival No acute distress Hsu draining clear yellow with CBI on slow No f/c/n/v Reports minimal pain around cath insertion site Ambulating without issue Tolerating diet Review of Systems Constitutional: as per Subjective / HPI Genitourinary: + as per Subjective / HPI Physical Exam Constitutional: no acute distress Respiratory: no respiratory distress and no labored breathing Neurologic: moves all extremities and awake Psychiatric: A+Ox3, euthymic affect Genitourinary: Hsu intact draining clear yellow urine with CBI on slow Results & Data Vital Signs (Past 12 Hours) Vital Signs Temp Pulse Resp BP Pulse Ox O2 Del Method 09/26/24 07:11 36.7 C 82 16 121/66 92 Room Air 09/26/24 02:41 36.6 C 89 18 118/64 91 Room Air 09/25/24 22:40 36.6 C 96 H 18 102/66 92 Room Air PG Care Time/CCT Total # of Minutes Spent Total Time Spent with Patient: Total time spent is greater than 50% in coordination of care (as documented) at patient's floor/unit and/or counseling patient: Coding Level of Care Code None Diagnoses BPH (benign prostatic hyperplasia) N40.0 Elevated PSA R97.20 Urinary retention R33.9
--- NOTE | 2024-09-30 11:52 | Discharge Summary ---
Date of Service September 30, 2024 Admission HPI Per Admitting Provider 64-year-old male with a history of BPH with urinary obstruction/LUTS who presents for transurethral resection of the prostate Admission Exam Per Admitting Provider General: Alert in no acute distress. HEENT: Normocephalic Atraumatic. Inspection normal. Psychologic: Normal affect. Respiratory: Nonlabored. Cardiovascular: No tachycardia Skin: [place] and Dry. Principal Diagnosis BPH, urinary retention, elevated PSA Discharge Exam Constitutional well developed and well nourished; no acute distress Respiratory normal respiratory effort; no respiratory distress and no labored breathing Musculoskeletal Head/Neck/Chest: normocephalic Skin no rashes, warm and dry Neurologic moves all extremities and awake Psychiatric A+Ox3, euthymic affect Genitourinary Hsu intact draining yellow urine Discharge Data Allergies Allergy/AdvReac Type Severity Reaction Status Date / Time No Known Allergies Allergy Verified 09/25/24 09:18 Procedures Performed Operation Date: 09/25/24 10:50 Actual Procedures p Transurethral Resection of the Prostate(Not Applicable) - Bentley Farley, DO Hospital Course (1) BPH (benign prostatic hyperplasia): (2) Urinary retention: (3) Elevated PSA: Plan POD #1 s/p transurethral resection of prostate with Dr. Farley. - Doing well, progressing as expected. - Afebrile with stable vitals - Labs today reviewed - WBC 14.83, Hemoglobin 12.8, Creatinine 1.03. - Tolerating PO diet - Reports minimal pain - 3 way Hsu catheter intact, patent and draining clear urine with CBI on slow rate. - CBI clamped this morning - will reassess later this AM - Maintain Hsu catheter - Anticipate home with Hsu catheter later today presuming urine appropriate and he continues to progress as expected - Expected clinical course reviewed, all questions answered - Will arrange outpatient follow-up with our service for voiding trial and path review Total Time Total Time Spent Total Time Spent (In Minutes): 15 Discharge Plan Discharge Items Patient Disposition: Home - Self-Care Reason For Visit: Elevated PSA, Acute Urinary Retention Discharge Diagnosis: Elevated PSA, Acute Urinary Retention Condition on Discharge: Good Activity: Per Instructions section Bathing Comment: OK to shower. No tub baths or soaks. Driving/Machine Use: Do not drive if taking prescription pain medication. Non-emergency contact: Surgeon and Urologist Call non-emergency contact if: you have any medication questions, your symptoms worsen, your pain is not controlled, your pain is worsening and you have a fever Follow-up/Referrals: Bentley Farley DO [Physician] - (office will reach out to schedule appt) Connie Mariano PA-C [Primary Care Provider] - (office closed @ 1300 on Fridays, correct # to call to schedule is [phone]) Diet: Regular Addtl Attending Provider Instructions: Please take all medications as prescribed and keep all follow-ups as scheduled. Please call our office at [phone] with any questions, concerns or need to reschedule appointments for any reason. We are happy to assist you. The urology office will contact you to arrange a follow-up visit. Tips for your recovery at home: Dont be alarmed by brownish or reddish blood or clots in your urine. This is a result of the procedure. This may occur off and on for weeks to months after the procedure but should continue to improve. Drink plenty of fluids during the day (enough to keep your urine very light colored). This will help keep a healthy flow of urine. Do not lift >25 lbs until your followup Avoid constipation. Please use a stool softener (Colace) for the first two weeks after your procedure Be sure to finish the antibiotics as prescribed. If you go home with a catheter, please wash tubing where it enters your body twice daily with mild soap (Dove or Dial). Once your catheter is removed, expect some blood in your urine and some burning when you urinate. You should have an appointment to have this removed, if you do not please call our office to arrange. When to call [facility] at [phone]: Your urine contains heavy blood clots or your catheter stops draining You are constantly leaking urine Fever of 101F or higher, chills, nausea, or vomiting Your pain is not relieved with medication Pending Studies at Discharge: Yes Stand-Alone Forms: My [employer], Pain - Opioid Pain Management, Smoking Cessation Medications and DC Order Prescriptions: New oxycodone-acetaminophen [Percocet] 5-325 mg tablet 1 tab PO Q8H PRN (Reason: pain) Qty: 5 0RF Continued tamsulosin 0.4 mg capsule 0.4 mg PO QAM ProAir RespiClick 90 mcg/actuation aerosol powdr breath activated 1 inh inhalation QID PRN (Reason: sob) acetaminophen [Tylenol Extra Strength] 500 mg tablet 1,000 mg PO TID PRN (Reason: pain) Rx Instructions: Take 3 times per day to lessen pain. multivitamin Capsule 1 cap PO QAM cholecalciferol (vitamin D3) [Vitamin D3] 50 mcg (2,000 unit) Capsule 50 mcg PO QAM Discharge Orders: Discharge Order (Routine); Ordered 09/26/24 Ordered By: Leandra Ames/Other Patient Handouts: DVT Post Op Prevention Admission Data Admit Date/Time: 09/25/24 11:14 Attending Provider: Bentley Farley Admit Provider: Bentley Farley Primary Care Provider: Connie Mariano Other Interventions: Discharge Summary Assessment (RN) Last Done: 09/26/24 13:52 Coding Level of Care Code 33121 IN/OBS DISCH 30 MIN/LESS Diagnoses BPH (benign prostatic hyperplasia) N40.0 Urinary retention R33.9 Elevated PSA R97.20
== END 2024-09-26 15:37 | disposition home or self-care (01) ==
LOC: 3N 09:00 → ASU 09:00